=== PATIENT | male | born 2000 | race Caucasian/White ===

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

== ENCOUNTER 2021-10-30 00:51 | Emergency (ER) | payer BC, OTHER ==
[2021-10-30 00:51] VITALS: BP 138/78
[2021-10-30] MEDS ORDERED: NICOTINE 21 MG (NICODERM) PATCH TD STA (01:13)
--- NOTE | 2021-10-30 01:13 | ED Psychosocial ---
General Chief Complaint: Suicidal Ideation Risk Stated Complaint: OVERDOSE Nursing Triage Note: Pt brought in by ems after taking an unknown amount of an unknown anxiety med. Pt states this is a new medication that he was prescribed after being released from the [place] Sunday. Pt states he was there for suicidal ideation. Pt states he still feels suicidal and that he has been depressed for a couple of months. Source: patient, EMS (ROSEMARY ENRIQUEZ MD) History of Present Illness Date Seen by Provider: Oct 30, 2021 Time Seen by Provider: 00:54 Initial Comments 21 yo male presenting by EMS from his apartment after his girlfriend found out that he had taken extra of his medications. He has gone back and forth from saying he took extra of his meds to go to sleep to saying he was depressed and suicidal. he was just released from [facility] in [place] on Wednesday 10/25 and started on new medicines. He has been depressed for several months and feeling suicidal lately. He says he does not want to be "locked up again". He is not making eye contact initially and then when he does make eye contact he is aggressive and saying he wants to go home and not be here. He says it is his right to refuse treatment and to be able to walk out and leave. He was advised that we would call Law enforcement if he left and they would put him in protective custody until he had his screening completed which entails getting blood and urine testing. He would then have to speak with a mental health provider to screen him for depression and suicidal ideation. Timing/Duration: this evening Associated Symptoms: anxiety, impaired concentration, ingestion, suicidal ideation (initially said he had suicidal ideation but then quickly tried to change to saying he just wanted to leave and refuse to be here. ) (ROSEMARY ENRIQUEZ MD) Allergies and Home Medications Allergies Coded Allergies: No Known Drug Allergies (Unverified , 07/14/20) Patient Home Medication List Home Medication List Reviewed: Yes (ROSEMARY ENRIQUEZ MD) Review of Systems Constitutional: No chills, No fever EENTM: no symptoms reported Respiratory: no symptoms reported Cardiovascular: no symptoms reported Gastrointestinal: no symptoms reported Genitourinary: no symptoms reported Musculoskeletal: no symptoms reported Skin: no symptoms reported Psychiatric/Neurological: Anxiety, Depressed, Emotional Problems (depression and suicidal ideation) (ROSEMARY ENRIQUEZ MD) Past Ulvdqes-Ysaeuy-Oozatw Hx Patient Social History Tobacco Use?: Yes Tobacco type used: Cigarettes Smoking Status: Current Everyday Smoker Substance use?: No Alcohol Use?: Yes Alcohol Frequency: Once in a while Pt feels they are or have been: No (ROSEMARY ENRIQUEZ MD) Seasonal Allergies Seasonal Allergies: Yes (ROSEMARY ENRIQUEZ MD) Past Medical History Surgeries: Yes Tonsillectomy Respiratory: No Cardiac: No Neurological: No Genitourinary: No Gastrointestinal: No Musculoskeletal: No Endocrine: No HEENT: No Cancer: No Psychosocial: No Integumentary: No Blood Disorders: No (ROSEMARY ENRIQUEZ MD) Physical Exam Vital Signs - First Documented 10/30/21 00:51 Pulse 95 Resp 18 B/P (MAP) 138/78 (98) Pulse Ox 99 O2 Delivery Room Air (TIESHA BROWN MD) Capillary Refill : Less Than 3 Seconds (ROSEMARY ENRIQUEZ MD) Height, Weight, BMI Height: '" Weight: lbs. oz. kg; BMI Method: General Appearance: WD/WN HEENT: PERRL/EOMI, pharynx normal Neck: non-tender, full range of motion, supple, normal inspection Respiratory: chest non-tender, lungs clear, normal breath sounds, no respiratory distress, no accessory muscle use Cardiovascular: normal peripheral pulses, regular rate, rhythm Gastrointestinal: normal bowel sounds, non tender, soft, no pulsatile mass Extremities: normal range of motion, non-tender, normal capillary refill Neurologic/Psychiatric: setter out II-XII nml as tested, alert, oriented x 3, other (anxious and agitated) Appearance/Memory: appropriate appearance, denies illness Behavior/Eye Contact: avoids eye contact (at times), threatening eye contact (at times), increased rate of speech, belligerent, compulsive Thoughts/Hallucinations: no apparent hallucination Skin: normal color, warm/dry (ROSEMARY ENRIQUEZ MD) Progress/Results/Core Measures Results/Orders Lab Results Laboratory Tests Test 10/30/21 01:06 10/30/21 01:08 Range/Units White Blood Count 6.7 4.3-11.0 10^3/uL Red Blood Count 5.05 4.30-5.52 10^6/uL Hemoglobin 14.9 13.3-17.7 g/dL Hematocrit 45 40-54 % Mean Corpuscular Volume 88 80-99 fL Mean Corpuscular Hemoglobin 30 25-34 pg Mean Corpuscular Hemoglobin Concent 34 32-36 g/dL Red Cell Distribution Width 12.4 10.0-14.5 % Platelet Count 211 130-400 10^3/uL Mean Platelet Volume 10.2 9.0-12.2 fL Immature Granulocyte % (Auto) 0 % Neutrophils (%) (Auto) 43 42-75 % Lymphocytes (%) (Auto) 37 12-44 % Monocytes (%) (Auto) 12 0-12 % Eosinophils (%) (Auto) 7 0-10 % Basophils (%) (Auto) 1 0-10 % Neutrophils # (Auto) 2.9 1.8-7.8 X 10^3 Lymphocytes # (Auto) 2.5 1.0-4.0 X 10^3 Monocytes # (Auto) 0.8 0.0-1.0 X 10^3 Eosinophils # (Auto) 0.5 H 0.0-0.3 10^3/uL Basophils # (Auto) 0.1 0.0-0.1 10^3/uL Immature Granulocyte # (Auto) 0.0 0.0-0.1 10^3/uL Sodium Level 137 135-145 MMOL/L Potassium Level 3.8 3.6-5.0 MMOL/L Chloride Level 103 98-107 MMOL/L Carbon Dioxide Level 20 L 21-32 MMOL/L Anion Gap 14 5-14 MMOL/L Blood Urea Nitrogen 17 7-18 MG/DL Creatinine 0.95 0.60-1.30 MG/DL Estimat Glomerular Filtration Rate 118 BUN/Creatinine Ratio 18 Glucose Level 123 H 70-105 MG/DL Calcium Level 8.7 8.5-10.1 MG/DL Corrected Calcium 8.7 8.5-10.1 MG/DL Total Bilirubin 0.2 0.1-1.0 MG/DL Aspartate Amino Transf (AST/SGOT) 19 5-34 U/L Alanine Aminotransferase (ALT/SGPT) 27 0-55 U/L Alkaline Phosphatase 93 40-136 U/L Total Protein 6.1 L 6.4-8.2 GM/DL Albumin 4.0 3.2-4.5 GM/DL Salicylates Level < 0.3 L 5.0-20.0 MG/DL Acetaminophen Level < 10 L 10-30 UG/ML Serum Alcohol < 10 <10 MG/DL Urine Color YELLOW Urine Clarity CLEAR Urine pH 6.0 5-9 Urine Specific [place] 1.020 1.016-1.022 Urine Protein NEGATIVE NEGATIVE Urine Glucose (UA) NEGATIVE NEGATIVE Urine Ketones NEGATIVE NEGATIVE Urine Nitrite NEGATIVE NEGATIVE Urine Bilirubin NEGATIVE NEGATIVE Urine Urobilinogen 0.2 < = 1.0 MG/DL Urine Leukocyte Esterase NEGATIVE NEGATIVE Urine RBC (Auto) NEGATIVE NEGATIVE Urine RBC NONE /HPF Urine WBC NONE /HPF Urine Crystals NONE /LPF Urine Bacteria NEGATIVE /HPF Urine Casts NONE /LPF Urine Mucus NEGATIVE /LPF Urine Culture Indicated NO Urine Opiates Screen NEGATIVE NEGATIVE Urine Oxycodone Screen NEGATIVE NEGATIVE Urine Methadone Screen NEGATIVE NEGATIVE Urine Propoxyphene Screen NEGATIVE NEGATIVE Urine Barbiturates Screen NEGATIVE NEGATIVE Ur Tricyclic Antidepressants Screen NEGATIVE NEGATIVE Urine Phencyclidine Screen NEGATIVE NEGATIVE Urine Amphetamines Screen POSITIVE H NEGATIVE Urine Methamphetamines Screen POSITIVE H NEGATIVE Urine Benzodiazepines Screen NEGATIVE NEGATIVE Urine Cocaine Screen NEGATIVE NEGATIVE Urine Cannabinoids Screen NEGATIVE NEGATIVE (TIESHA BROWN MD) My Orders Orders - TIESHA BROWN MD Olanzapine Orally Dissolve Tab (Zyprexa (10/30/21 07:30) (TIESHA BROWN MD) Vital Signs/I&O 10/30/21 00:51 Pulse 95 Resp 18 B/P (MAP) 138/78 (98) Pulse Ox 99 O2 Delivery Room Air (TIESHA BROWN MD) Blood Pressure Mean: 98 Progress Progress Note #1: Progress Note check psych panel of labs to medically screen pt for mental health evaluation. Pt asking to go smoke a cigarette and when told he could not but we could give him a nicotine patch, he initially said no but then agreed to the patch. His girlfriend arrived and stated that he had taken about 18 pills of hydroxyzine 25 mg pills. Unsure of a specific time tonight for ingestion. will check with poison control about the med. Pt does also admit to previous admit to [facility] Progress Note #2: Time: 01:42 Progress Note Labs all appear stable without acute significant abnormality. He does have amphetamines and methamphetamines showing up in his urine drug screen but since he does take Vyvanse that food causes amphetamines and methamphetamines to show positive on the drug screen. Patient did state when he was told that urine drug screen would be obtained at that he does take Vyvanse and his urine will "pop dirty". Poison control had been contacted about his ingestion after his girlfriend had arrived and confirmed about the medication and approximate number of medicines that he had taken. They recommended supportive care and suggested electrocardiogram as well as an IV for IV fluids and Ativan to help with any agitation. Patient was not willing to have these additional measures. With his girlfriend here he was able to be more calm and cooperative. He is medically clear and stable to be screened by mental health. Will contact [facility] about obtaining a mental health screening. When [facility] was contacted about MH screening they advised that several other patients were ahead of him so it would likely be in the morning before he would be screened. Progress Note #3: Time: 06:48 Progress Note d/w poison control again and they signed off on his case as he has been medically stable for 6 hours. He is medically cleared and awaiting mental health evaluation. He is still pending a telehealth mental health evaluation from [facility]. Will pass care to Dr. Brown at shift change pending the telehealth mental health evaluation and disposition (ROSEMARY ENRIQUEZ MD) Progress Note : Progress Note The patient was screened around 9 AM by the mental health provider. They came up with a safety plan and the patient is to go home with his significant other. I am agreeable to this plan as currently he is not suicidal. The patient was discharged in stable condition with strict return precautions. (TIESHA BROWN MD) Transfer of Care Time: 07:00 Care transferred to: Dr. Brown (ROSEMARY ENRIQUEZ MD) Departure Impression Primary Impression: Intentional hydroxyzine overdose Qualified Codes: T43.592A - Poisoning by other antipsychotics and neuroleptics, intentional self-harm, initial encounter Additional Impression: Depression with suicidal ideation Disposition: 01 HOME, SELF-CARE Condition: Stable Departure-Patient Inst. Decision time for Depature: 10:21 (TIESHA BROWN MD) Referrals: NO,LOCAL PHYSICIAN (PCP/Family) Primary Care Physician Patient Instructions: OUTPT MENTAL HEALTH SERVICES, Suicide Prevention Add. Discharge Instructions: Please follow-up with your mental health provider that you guys have planned for. If you have any thoughts to harm yourself please come back to the ER. Work/School Note: Work Release Form Date Seen in the Emergency Department: Oct 30, 2021 Return to Work: Oct 31, 2021 Restrictions: No Restrictions ROSEMARY ENRIQUEZ MD Oct 30, 2021 01:12 TIESHA BROWN MD Oct 30, 2021 10:22
[2021-10-30 01:29] LABS: WHITE BLOOD COUNT 6.7 10^3/uL (4.3-11.0)
[2021-10-30 01:30] LABS: BASOPHILS # (AUTO) 0.1 10^3/uL (0.0-0.1); BASOPHILS % (AUTO) 1 % (0-10); EOSINOPHILS # (AUTO) 0.5 10^3/uL (0.0-0.3); EOSINOPHILS % (AUTO) 7 % (0-10); HEMATOCRIT 45 % (40-54); HEMOGLOBIN 14.9 g/dL (13.3-17.7); LYMPHOCYTES # (AUTO) 2.5 X 10^3 (1.0-4.0); LYMPHOCYTES % (AUTO) 37 % (12-44); MEAN CORPUSCULAR HEMOGLOBIN 30 pg (25-34); MEAN CORPUSCULAR HGB CONC 34 g/dL (32-36); MEAN CORPUSCULAR VOLUME 88 fL (80-99); MEAN PLATELET VOLUME 10.2 fL (9.0-12.2); MONOCYTES # (AUTO) 0.8 X 10^3 (0.0-1.0); MONOCYTES % (AUTO) 12 % (0-12); NEUTROPHILS # (AUTO) 2.9 X 10^3 (1.8-7.8); NEUTROPHILS % (AUTO) 43 % (42-75); PLATELET COUNT 211 10^3/uL (130-400)
[2021-10-30 01:31] LABS: BACTERIA,URINE NEGATIVE /HPF; BILIRUBIN,URINE NEGATIVE (NEGATIVE); CLARITY,URINE CLEAR; COLOR,URINE YELLOW; GLUCOSE, URINE (UA) NEGATIVE (NEGATIVE); KETONES,URINE NEGATIVE (NEGATIVE); LEUKOCYTE ESTERASE ,URINE NEGATIVE (NEGATIVE); NITRITE,URINE NEGATIVE (NEGATIVE); PROTEIN,URINE NEGATIVE (NEGATIVE)
[2021-10-30 01:34] LABS: AMPHETAMINE SCREEN, URINE POSITIVE (NEGATIVE); BARBITURATE SCREEN URINE NEGATIVE (NEGATIVE); BENZODIAZEPINES SCREEN URINE NEGATIVE (NEGATIVE); CANNABINOID SCREEN, URINE NEGATIVE (NEGATIVE); COCAINE SCREEN URINE NEGATIVE (NEGATIVE); METHADONE STAT NEGATIVE (NEGATIVE); METHAMPHETAMINE SCREEN URINE S POSITIVE (NEGATIVE); OPIATE SCREEN URINE NEGATIVE (NEGATIVE); OXYCODONE STAT NEGATIVE (NEGATIVE); PROPOXYPHENE STAT NEGATIVE (NEGATIVE); TRICYCLIC ANTIDEPRESSANTS SCRE NEGATIVE (NEGATIVE)
[2021-10-30 01:42] LABS: ACETAMINOPHEN < 10 UG/ML (10-30); ALANINE AMINOTRANSFERASE 27 U/L (0-55); ALKALINE PHOSPHATASE 93 U/L (40-136); BILIRUBIN,TOTAL 0.2 MG/DL (0.1-1.0); BUN/CREATININE RATIO 18; CALCIUM 8.7 MG/DL (8.5-10.1); CARBON DIOXIDE 20 MMOL/L (21-32); CHLORIDE 103 MMOL/L (98-107); CREATININE SERUM 0.95 MG/DL (0.60-1.30); GFR ESTIMATED 118; GLUCOSE 123 MG/DL (70-105); POTASSIUM 3.8 MMOL/L (3.6-5.0); SALICYLATE < 0.3 MG/DL (5.0-20.0); SODIUM 137 MMOL/L (135-145); TOTAL PROTEIN 6.1 GM/DL (6.4-8.2)
[2021-10-30] MEDS ORDERED: OLANZapine 5 MG ODT (ZyPREXA ZYDIS) PO PRN (07:30)
== END 2021-10-30 10:25 | disposition home or self-care (01) ==
LOC: EDUNIT# 00:51 → ER FS 00:53
DX: T43.592A Poisoning by other antipsychotics and neuroleptics, intentional self-harm, initial encounter (principal); F32.9 Major depressive disorder, single episode, unspecified; F17.210 Nicotine dependence, cigarettes, uncomplicated; X83.8XXA Intentional self-harm by other specified means, initial encounter
CPT/HCPCS: 36415; 80053; 80306; 81000; 85025; 99282; G0480 ×3; 80320; 80329